=== PATIENT | male | born 1990 | race American Indian/Alaskan Native ===

== ENCOUNTER 2016-05-08 13:29 | Emergency (ER) | payer SELFPAY ==
[2016-05-08 15:11] VITALS: BP 137/86
== END 2016-05-08 19:00 | disposition left against medical advice (07) ==
LOC: ED 13:29
DX: R21 Rash and other nonspecific skin eruption (principal); Z53.21 Procedure and treatment not carried out due to patient leaving prior to being seen by health care provider